=== PATIENT | female | born 1990 | race Caucasian/White ===

== ENCOUNTER 2016-06-19 12:33 | Emergency (ER) | payer OTHER ==
[~2016-06-19] VITALS: Ht 162.6 cm; Wt 86.4 kg
[~2016-06-19 12:33] MED LIST: ALBU8.5H2 INHALATION; AMOX-366 PO; AZIT250T4; BISA10SU61 RC; CYCL10TA9 PO
[2016-06-19 12:50] VITALS: BP 97/65; PULSE 75; RESP 16; O2SAT 97
--- NOTE | 2016-06-19 13:55 | ED.REPORT ---
HPI-URI / Cough / Cold Date of Service Jun 19, 2016 ED Provider: Asuncion Uribe History of Present Illness: bad chest pain radiating to left arm for 3 days, has a cough. taking nyquil and dayquil, feeling hot and cold hot and cold. nadiya red is primary care. no asthma, no breathing issues. hard time breathing since this started Nursing Notes Stated Complaint: CHEST PAIN/BREATHING PROBLEMS Chief Complaint: FLU/Cold Symptoms Nursing Notes Reviewed: Yes Allergies: Coded Allergies: No Known Allergies (Verified Allergy, Unknown, 03/07/16) Scheduled Albuterol HFA (Proair HFA) 8.5 Gm Hfa.aer.ad 2 PUFFS INHALATION Q4H Amoxicillin/Clav K 875-125 mg (Augmentin 875-125 mg) 1 Each Tablet 1 TABLET PO BID Scheduled PRN Bisacodyl (Dulcolax Rectal) 10 Mg Supp.rect 10 MG RC DAILY PRN PRN For Constipation Cyclobenzaprine (Cyclobenzaprine) 10 Mg Tablet 10 MG PO TID PRN PRN For Spasm Miscellaneous Medications Azithromycin (Zithromax (Z-Lázaro)) 250 Mg Tablet General Time Seen by MD: 13:33 Chief Complaint Cough, productive... (Green) Hx Obtained From: Patient Onset Occurred: 3 days ago Location: : Chest Past Medical History Past Medical History Notes: Past Medical History Hemorrhaging ovarian cysts UTI Pyelonephritis Nephrolithiasis during Anxiety Depression Past Surgical History D&C x 2 Family History Noncontributory Smoking History Current Every Day Smoker (1/2 pack a day for 12 years) Social History Alcohol Use: Denies alcohol use Drug Use: Denies drug use Other Social History: Frequent ED visitor, Lives with children, Local resident Occupation lives with daughter, work at [employer] Ambulatory Status Independent Review of Systems Basic Review of Systems Musculoskeletal: No extremity swelling Hematologic: No bleeding Psychiatric: Normal thought content Physical Exam Initial Vital Signs Vital Signs (First) Date Time Temp Pulse Resp B/P Pulse Ox O2 Delivery O2 Flow Rate FiO2 06/19/16 12:50 36.5 75 16 97/65 97 Room Air Initial VS: Reviewed, Vital signs normal Head / Eyes: Atraumatic, Normocephalic, PERRL Neck: Supple, Non-tender, Full range of motion Cardiovascular: Regular rate & rhythm, Heart sounds normal, Intact distal pulses Abdomen / GI: Soft, Non-tender, No guarding, No rebound, No distention Back: No CVA tenderness Lymphatic: No lymphadenopathy Extremities: Vascular intact, Neuro intact, No swelling, No tenderness Skin: Warm, Dry, No cyanosis Neurologic: Alert, Oriented, Nonfocal Psychiatric: Mood/affect normal, Behavior normal, Normal thought content General/Constitutional: Awake, Alert, No acute distress, Well appearing, Well developed, Well hydrated, Well nourished, Cooperative, Not toxic appearing resting comfortable in bed texting ENT: Atraumatic, Airway patent, Mucous membranes moist, Pharynx NL, No peritonsillar abscess Diminished Breath Sounds: Positive: Decreased L, Decreased R, Decreased bilateral Neck: Atraumatic, Supple, No meningismus, Full range of motion Cardiovascular: Heart rate NL, Regular rhythm, Heart sounds NL, No gallop Abdomen: Atraumatic, Soft, Non-tender Interpretation & Diagnostics Interpretation & Diagnostics: patient reporting breathing better after nebulizer treatment Lab Results Interpretation Result Diagram: 06/19/16 1430 06/19/16 1430 Test 06/19/16 14:30 06/19/16 16:18 White Blood Count 8.0th/mm3 (3.8-10.1) Red Blood Count 4.91mil/mm3 (3.90-5.20) Hemoglobin 13.5g/dL (12.0-15.6) Hematocrit 41.1% (35.0-46.0) Mean Corpuscular Volume 83.7fL (81-100) Mean Corpuscular Hemoglobin 27.5pg (27.0-35.0) Mean Corpuscular Hemoglobin Concent 32.8% (32.0-37.0) Red Cell Distribution Width 13.3% (12.3-15.4) Platelet Count 358bil/L (150-400) Neutrophils (%) (Auto) 53.5% (40-74) Lymphocytes (%) (Auto) 34.6% (14-46) Monocytes (%) (Auto) 8.5% (4-12) Eosinophils (%) (Auto) 2.5% (0-5) Basophils (%) (Auto) 0.7% (0-3) D-Dimer < 0.5mg/L (<0.50) Sodium Level 139mEq/L (134-144) Potassium Level 3.8mEq/L (3.5-5.2) Chloride Level 102mEq/L (97-108) Carbon Dioxide Level 22mmol/L (18-29) Blood Urea Nitrogen 8mg/dL (6-20) Creatinine 0.68mg/dL (0.57-1.00) Estimat Glomerular Filtration Rate 154mL/min (>59) Glucose Level 96mg/dL (60-99) Calcium Level 9.2mg/dL (8.5-10.1) Total Bilirubin 0.4mg/dL (0.0-1.2) Aspartate Amino Transf (AST/SGOT) 21U/L (0-50) Alanine Aminotransferase (ALT/SGPT) 13U/L (0-32) Alkaline Phosphatase 65U/L (25-150) Troponin T < 0.010ug/L (0.0-0.011) Total Protein 7.1g/dL (6.4-8.4) Albumin 4.3g/dL (3.4-5.0) Urine Color Yellow (YELLOW) Urine Appearance Hazy (CLEAR,HAZY) Urine pH 7.5 (5.0-8.0) Urine Specific [place] 1.010 (1.003-1.035) Urine Protein Negativemg/dL (NEG,TRACE) Urine Glucose (UA) Negativemg/dL (NEGATIVE) Urine Ketones Negativemg/dL (NEGATIVE) Urine Occult Blood Large (NEGATIVE) Urine Nitrite Negative (NEGATIVE) Urine Bilirubin Negative (NEGATIVE) Urine Urobilinogen Normalmg/dL (NORMAL) Urine Leukocyte Esterase Trace (NEGATIVE) Urine RBC 3-10/hpf (0-2) Urine WBC 0-5/hpf (0-5) Urine Epithelial Cells Moderate/hpf (NONE-MOD) Urine Crystals Oxalic acid crystals (NONE Urine Bacteria Few/hpf (NONE-FEW) Urine Hyaline Casts None/lpf (NONE) Urine Granular Casts None seen (NONE SEEN) Urine Waxy Casts None seen (NONE SEEN) Urine Red Blood Cell Casts None seen (NONE SEEN) Urine White Blood Cell Casts None seen (NONE SEEN) Urine Mucus None seen (None Seen) Urine Trichomonas None seen (NONE SEEN) Urine Yeast None (NONE SEEN) Urinalysis Comment None Urine Culture Reflexed Indicated X-Ray Chest Interpretation Chest Xray Interpretation: ROCEDURE: X-RAY CHEST, TWO VIEWS ([id number]) INDICATIONS: cp, cough TECHNIQUE: 2 views of the chest were acquired. COMPARISON: [facility], CR, XR CHEST 2VW, 07/09/2015, 20:09. FINDINGS: Surgical changes and devices: None. Lungs and pleura: No pleural effusions or pneumothorax. Lungs are clear. Mediastinum: Mediastinal contours are normal. Heart size is normal. Bones and chest wall: No suspicious bony abnormalities. Soft tissues appear unremarkable. IMPRESSION: No acute cardiopulmonary disease process. Re-Eval/Medical Decision Med Decision/Clinical Course Med Decision/Clinical Course: 25 year old presents for evualtion of chest pain of 3 days duration. Has had a productive cough. D-dimer is negative, chest x-ray is negative. pateint not reporting significant decrease in pain. Will start antibiotics with steroids and duoned inhaler. Symptoms no consistent with influenza or phargynitis Discharge & Departure Impression: Primary Impression: Cough Additional Impression: Non-cardiac chest pain Disposition: Home Patient Instructions: Chest Pain (ED) Additional Instructions: The chest x-ray does not show any sign of infection. Your labs are normal. The marker for cardiac injury is negative. You do not have any sign of a pulmonary embolus. There was a great response to the duo nebulizer treatment. Your urine does not show any sign of infection but it is being cultured. If the culture indicates an infection, we will call you. Start azithromycin daily for 5 days. Use prednisone daily for 4 days. Also a prescription for a duoneb inhaler is being provided. This should help decrease the cough and the chest pain. No work till Friday06/24/2016. Notes are provided. Referrals: [facility] EDSupervising Provider for APC: Félix Gonzalez MD copies to: [facility] Asuncion Uribe Jun 19, 2016 13:55
[2016-06-19] MEDS ORDERED: Albuterol-Ipratropium 3 mL Inhalation Solution NEB ONE (14:00)
[2016-06-19] MEDS ORDERED: Ketorolac 30 mg/mL 2 mL Inj IM ONE (14:00)
[2016-06-19 14:23] VITALS: PULSE 85; RESP 20; O2SAT 97
[2016-06-19 14:40] LABS: BASOPHILS % (AUTO) 0.7 % (0-3); EOSINOPHILS % (AUTO) 2.5 % (0-5); MONOCYTES % (AUTO) 8.5 % (4-12); Mean Corpuscular Hemoglobin 27.5 pg (27.0-35.0); Mean Corpuscular Volume 83.7 fL (81-100); NEUTROPHILS % (AUTO) 53.5 % (40-74); Platelet Count 358 bil/L (150-400)
--- NOTE | 2016-06-19 14:42 | DRSVH ---
PROCEDURE: X-RAY CHEST, TWO VIEWS ([id number]) INDICATIONS: cp, cough TECHNIQUE: 2 views of the chest were acquired. COMPARISON: [facility], CR, XR CHEST 2VW, 07/09/2015, 20:09. FINDINGS: Surgical changes and devices: None. Lungs and pleura: No pleural effusions or pneumothorax. Lungs are clear. Mediastinum: Mediastinal contours are normal. Heart size is normal. Bones and chest wall: No suspicious bony abnormalities. Soft tissues appear unremarkable. IMPRESSION: No acute cardiopulmonary disease process. Dictated by: Janae Garcia MD, PhD on 06/19/2016 at 14:40 Approved by: Janae Garcia MD, PhD on 06/19/2016 at 14:41
[2016-06-19 15:01] LABS: TROPONIN T < 0.010 ug/L (0.0-0.011)
[2016-06-19 16:54] LABS: APPEARANCE,URINE HAZY (CLEAR,HAZY); COLOR,URINE YELLOW (YELLOW)
[2016-06-19 16:55] LABS: OCCULT BLOOD,URINE LARGE (NEGATIVE); PH,URINE 7.5 (5.0-8.0); UROBILINOGEN,URINE NORMAL (NORMAL)
[2016-06-19 17:01] VITALS: BP 123/76; PULSE 60; RESP 20; O2SAT 97
[2016-06-19 17:23] VITALS: BP 126/65; PULSE 83; O2SAT 99
[2016-06-19 17:26] VITALS: BP 126/65; PULSE 83; O2SAT 99
[2016-09-17] MEDS ORDERED: CIPR-198 PO (13:57)
[2016-09-17] MEDS ORDERED: NAPR500T5 PO (13:57)
== END 2016-06-19 17:27 | disposition home or self-care (01) ==
LOC: SED 12:33
DX: R05 Cough (principal); R07.89 Other chest pain; R06.00 Dyspnea, unspecified; F17.200 Nicotine dependence, unspecified, uncomplicated; Z87.440 Personal history of urinary (tract) infections
CPT/HCPCS: 36415; 71020; 80053; 81000; 84484; 85025; 85379; 87086; 87088; 93005; 94664; 96372; 99285; J1885; J7620

== ENCOUNTER 2016-07-15 11:03 | Emergency (ER) | payer OTHER ==
[~2016-07-15] VITALS: Ht 162.6 cm; Wt 81.8 kg
[2016-07-15 11:15] VITALS: BP 113/70; PULSE 65; RESP 15; O2SAT 98
[2016-07-15 11:51] LABS: BASOPHILS % (AUTO) 0.6 % (0-3); EOSINOPHILS % (AUTO) 2.9 % (0-5); MONOCYTES % (AUTO) 9.8 % (4-12); Mean Corpuscular Hemoglobin 27.6 pg (27.0-35.0); Mean Corpuscular Volume 86.2 fL (81-100); NEUTROPHILS % (AUTO) 60.7 % (40-74); Platelet Count 323 bil/L (150-400)
--- NOTE | 2016-07-15 15:21 | PCM.EDPN ---
ED Note Date of Service Jul 15, 2016 Presented to ED c/o right side abd pain, similar to prior. Was scheduled for upper and lower endoscopy (on hold for , since miscarried). Nursing orders were initiated Patient left prior to being seen Labs reviewed by me unremarkable CBC and CMP Keturah Cervantes MD Jul 15, 2016 15:21
[2016-09-17] MEDS ORDERED: CIPR-198 PO (13:57)
[2016-09-17] MEDS ORDERED: NAPR500T5 PO (13:57)
== END 2016-07-15 13:54 | disposition left against medical advice (07) ==
LOC: SED 11:03
DX: R10.9 Unspecified abdominal pain (principal); Z53.21 Procedure and treatment not carried out due to patient leaving prior to being seen by health care provider

== ENCOUNTER 2016-09-18 00:07 | Day surgery (SDC) | payer OTHER ==
[2016-09-18] VITALS (7 sets, daily range): BP systolic 81–118; BP diastolic 46–67; PULSE 59–80; RESP 13–16; O2SAT 96–100
[~2016-09-18] VITALS: Ht 160 cm; Wt 86.0 kg
[~2016-09-18 00:07] MED LIST changes: -AMOX-366 PO; -AZIT250T4; -BISA10SU61 RC; +CIPR-198 PO; -CYCL10TA9 PO; +NAPR500T5 PO
[2016-09-18] MEDS ORDERED: Propofol 10 mg/mL 20 mL Inj ONE (00:08)
[2016-09-18] MEDS ORDERED: Lactated Ringer's 1,000 ML IV SCH (05:00)
[2016-09-18] MEDS ORDERED: Sodium Biphos-Phos 133 mL Enema RECTAL PRN (06:00)
[2016-09-18] MEDS ORDERED: 0.9% Sodium Chloride 1,000 ML IV SCH (06:00)
[2016-09-18] MEDS ORDERED: Sodium Chloride LOK Flush 10 mL Syringe IV PRN (06:00)
[2016-09-18] MEDS ORDERED: Ondansetron 2 mg/mL 2 mL Inj IVPUSH PRN (13:50)
[2016-09-18] MEDS ORDERED: MetoCLOpramide 5 mg/mL 2 mL Inj IVPUSH PRN (13:50)
[2016-09-18] MEDS: Lactated Ringer's 1,000 ML IV SCH ×2 (13:59→14:13)
--- NOTE | 2016-09-18 15:02 | PCM.ANEP1 ---
Post Anesthesia PACU Phase 1 Assessment Vital Signs Vital Signs Date Time Temp Pulse Resp B/P Pulse Ox O2 Delivery O2 Flow Rate FiO2 09/18/16 14:46 80 14 98/55 100 Room Air 09/18/16 13:18 36.5 73 16 118/65 96 Room Air Anesthetic Administered: GA, MAC Level of Alertness: Awake, talking SANDERS's with Equal Strength: Yes Pain: No Nausea or Vomiting: No CV Function & Hydration Stable: No Airway Device: na Oxygen Delivery: Room Air Lungs: Clear to Auscultation, Normal Air Movement Dermatome Level: Full Sensation PACU Phase 2 Assessment Complications: No Follow up Care: N/A Patient Instructions Provided: N/A Hernando Dolan MD Sep 18, 2016 15:02
--- NOTE | 2016-09-18 15:02 | PCM.HPANE ---
Patient Data Surgeon Admitting Provider: Attending Provider:Huan Marx MD Primary Care Physician:Uyen Other Provider:Bob Haynes Anesthesia Reason for Visit Right Flank Pain, Nausea Ht/WT & BMI Height (Feet): 5 Height (Inches): 3 Weight (Kilograms): 86 Body Mass Index 33.00 Allergies Coded Allergies: No Known Allergies (Verified Allergy, Unknown, 09/18/16) Past Anesthesia History Anesthesia History: Denies:: Abnormal Airway, Anesthesia Reactions, Difficult Intubation, Fam Anesthesia Reaction, Fam Malignant Hypertherm, Malignant Hyperthermia Diabetes History Hx Diabetes?: No MRSA MRSA: Yes (Back-resolved) Medications Reported Medications Albuterol HFA (Proair HFA)8.5 Gm Hfa.aer.ad2 Puffs INHALATION Q4H 03/07/16 Discontinued Reported Medications Naproxen 500 Mg Tablet.dr500 Mg PO BID PRN For Pain Ref 0 09/17/16 Ciprofloxacin 500 Mg Canics812 Mg PO BID 09/17/16 Cyclobenzaprine 10 Mg Qbzjpt82 Mg PO TID PRN For Spasm #20 03/07/16 Azithromycin (Zithromax (Z-Lázaro))250 Mg Tablet #6 03/07/16 Discontinued Scripts Bisacodyl (Dulcolax Rectal)10 Mg Supp.rect10 Mg RC DAILY PRN For Constipation # 10 SUPP.RECT Ref 0 Prov:Curt Camacho MD 03/07/16 Amoxicillin/Clav K 875-125 mg (Augmentin 875-125 mg)1 Each Tablet1 Tablet PO BID #14 TABLET Prov:Curt Camacho MD 03/07/16 History History of ENT Problems?: No HEENT History: Denies:: Abnormal Airway Difficult Intubation Denture Type: None Teeth Condition: Within Normal Limits Hx of Heart Problems?: No Cardiovascular History: Denies:: AICD Abdominal Aortic Aneurism Atrial Fibrillation Cardiac Surgery Chest Pain Congestive Heart Failure Coronary Artery Disease Edema Heart Murmur Hypertension Irregular Heartbeat Pacemaker Peripheral Vascular Rheumatic Fever Thrombophlebitis Valvular Heart Disease Hx of Respiratory Problem?: Yes Respiratory History: Positive for:: Asthma Denies:: COPD Chest Surgery Cough Dyspnea Emphysema Hemoptysis Oxygen Administration Pneumonia Pulmonary Embolism Tuberculosis Use of C-PAP Machine Use of Inhalers / NEBS Other Resp Pertinent History: Recurrent bronchitis Hx Neurologic Problems?: No Neurological History: Denies:: Alzheimer's Disease CVA Dementia Dizziness Headaches Multiple Sclerosis Parkinson's Disease Peripheral Neuropathy Seizures TIA Hx of GI Problems?: No Gastrointestinal History: Denies:: Cirrhosis Diverticulitis Gall Bladder Disease Gastroesphageal Reflux Gastrointestinal Bleeding Heartburn Hepatitis Hiatal Hernia Liver Disease Rectal Bleeding Hx of Problems?: No Genitourinary History: Denies:: HX of Hemodialysis Kidney Stones Urinary Tract Infection HX of Peritoneal Dialysis: No Female Hx: Denies:: Currently Endometriosis Pelvic Inflammatory Problems with Breasts? Skin History: Denies:: History Skin Disorders? Pressure Ulcers Hx Musculoskeletal Problems?: No Musculoskeletal History: Denies:: Back Injury Degenerative Joint Fibromyalgia Joint Replacement Musculoskeletal Trauma Myasthenia Gravis Osteoarthritis Rheumatoid Arthritis Systemic Lupus Hx of Psycho/Social Problems?: No Psycho Social History: Positive for:: Anxiety Denies:: Bipolar Disorder Hx Depression Suicide Attempt Hx Surgeries?: Yes () Hx Any Other Health Problems?: Yes Other History: Denies:: Cancer Endocrine Disease Hospitalization Thyroid Disease History Blood Transfusions: Denies:: Accept Blood Products? Blood Transfuse Reaction Blood Transfusions Hx Diabetes: No Hx Alcohol Use: NoHx Substance Use: Yes (marijuana) Smoking Status: Current Every Day Smoker Have You Smoked inLast 12 mo: No Stop/Bang Treated for Sleep Apnea?: No Do You Have a CPAP Machine?: No S-Snoring: Do You Snore Loudly: No T-Tired: feel tired, fatigued: Yes O-Obsered: Observed not breath: No P-Blood Pressure: treated: No B- Body Mass Index > 35 kg/m2: No A- Age over 50: No N- Neck Large Circumference: No G- Gender Male: No PAYTON Total Score: 1 Risk Assessment Category Category 1A: Patient has history of documented sleep apnea, and HAS NOT received any narcotic, sedative or anesthesia administration during this stay. Category 1B: Patient has history of documented sleep apnea, and HAS received any narcotic , sedative or anesthesia administration during this stay Category 2: Patient has SUSPECTED Obstructive Sleep Apnea, and HAS received any narcotic , sedative or anesthesia administration during this stay. Category 3: Patient has SUSPECTED Obstructive Sleep Apnea and HAS NOT received narcotic, sedative or anesthesia administration during this stay. Category 4: Outpatient in Procedural Areas with known sleep apnea or who screen positive for High Risk via the STOP/BANG questionnaire. Exam Exam Vital Signs Vital Signs Date Time Temp Pulse Resp B/P Pulse Ox O2 Delivery O2 Flow Rate FiO2 09/18/16 13:18 36.5 73 16 118/65 96 Room Air General Appearance: Alert, Oriented X3, Cooperative, No Acute Distress HEENT/AIRWAY: MP 2, Neck Movement (FROM), Mouth Opening (3 FBMO) Lungs: Clear to Auscultation, Normal Air Movement Heart: Exam Unremarkable, Regular Rate/Rhythm, No Murmurs/Rubs/Gallops Plan Impression Patient chart reviewed, patient interviewed and anesthestic plan with risks, benefits, and alternatives discussed, and informed consent obtained. NPO per Anesth. Guidelines: Yes ASA Physical Status: ASA3 Severe Disease Anesthetic Plan: GA, MAC Bene/Risks/Altern/Consents: Yes HP Complete Prior to Induction: Yes Hernando Dolan MD Sep 18, 2016 13:49
--- NOTE | 2016-09-18 15:23 | ENDO ---
[address] [address] ENDOSCOPY PROCEDURE PATIENT: AMPARO RODRIGUEZ : 1990 MR#: [id number] ADMIT: 09/18/2016 JOB ID: [id number] PREPROCEDURE DIAGNOSIS: Right flank pain, nausea. POSTPROCEDURE DIAGNOSIS: Right flank pain, nausea, possible proximal Hdez's esophagus, internal hemorrhoids. PROCEDURE: Esophagogastroduodenoscopy with biopsies, colonoscopy with terminal ileoscopy and biopsies. ENDOSCOPIST: Huan Marx MD MEDICATIONS: See the anesthesia record. INDICATIONS: The patient is a 25-year-old woman who has had longstanding right flank pain and constant nausea. The pain is exacerbated by certain positions. She also has pain in the left lower quadrant, intermittent constipation, abdominal bloating. There is no family history of inflammatory bowel disease. After discussion of risks and benefits, she agreed to proceed with upper endoscopy and colonoscopy with anesthesia. FINDINGS: The stomach and duodenum were grossly normal. She had a grade 2 esophagogastric flap valve. Biopsies were obtained from the EG junction to rule out Hdez's esophagus. There was a separate island of mucosal change in the proximal esophagus at 15 cm which was biopsied to rule out Hdez's esophagus. Colonoscopy with ileoscopy was grossly normal. She had small internal hemorrhoids. DESCRIPTION OF PROCEDURE: Procedural sedation was achieved. The bite block was introduced. She was connected to hemodynamic monitoring, pulse oximetry, capnography. The GIF H 180 J gastroscope was introduced through the mouth and passed to the level of the second portion of the duodenum under visualization. Duodenal biopsies were obtained to rule out celiac disease. The duodenum was grossly normal. The stomach was grossly normal. A biopsy was obtained from the gastric antrum with cold forceps to rule out H. pylori. Retroflexion in the stomach revealed a grade 2 esophagogastric flap valve. There was no significant hiatal hernia. The esophagogastric junction was at 35 cm from the incisors. Biopsies were obtained from the EG junction with cold forceps to rule out Hdez's esophagus. In the proximal esophagus there was a separate island of mucosal change which looked suspicious for Hdez's esophagus. This extended for approximately 2 cm. This was present, involving approximately 10% of the circumference of the esophagus at 15 cm from the incisors. Biopsies were obtained with cold forceps for permanent pathology. The upper scope was removed and that portion of the procedure was terminated. Digital rectal exam was performed. The PCF H 180 AL colonoscope was introduced and passed under visualization until the cecum was visualized and photo documented. The terminal ileum was intubated for approximately 10 cm, which was normal. Biopsies were obtained from the terminal ileum with cold forceps and sent for permanent pathology. The scope was then withdrawn and carefully retroflexed in the rectum. Random biopsies were obtained throughout the colon with cold forceps and sent for permanent pathology. No other mucosal abnormalities were identified in the colon. Retroflexion revealed small internal hemorrhoids. The scope was withdrawn and the procedure was terminated. She tolerated both procedures well. RECOMMENDATIONS: She will follow up with me in surgery clinic in 2-4 weeks to discuss pathology results and the next steps.
--- NOTE | 2016-09-20 13:16 | PATH ---
SURGICAL PATHOLOGY Attending Physician:Emani Rocha CASE STATUS: Signed Out PATIENT NAME: AMPARO RODRIGUEZ PID: [id number] : 11/06/1930 DATE COLLECTED:09/18/2016 00:00 SPECIMEN: 1: Duodenum, Biopsy 2: Stomach, Antrum, Biopsy 3: Esophagus, Biopsy 4: Esophagus, Biopsy 5: Colon, Polyp 6: Ileum, Biopsy CLINICAL HISTORY: 1. DUODENUM BIOPSY R/O SPRUE 2. ANTRUM BIOPSY R/O H.PYLORI 3. DISTAL ESOPHAGUS BIOPSY 4. PROXIMAL ESOPHAGUS @15CM BIOPSY 5. RANDOM COLON BIOPSY 6. TERMINAL ILEUM BIOPSY FINAL DIAGNOSIS: 1.DUODENUM BIOPSY: FRAGMENTS OF NORMAL-APPEARING DUODENUM MUCOSA. Normal delicate mucosal villi present. Negative for significant inflammation, dysplasia and malignancy. 2.GASTRIC ANTRUM BIOPSY: MILD CHRONIC GASTRITIS INVOLVING ANTRAL MUCOSA. Negative for evidence of Helicobacter on H&E stain. Negative for intestinal metaplasia. Negative for dysplasia and malignancy. 3.DISTAL ESOPHAGUS BIOPSY: FRAGMENTS OF SQUAMOUS MUCOSA AND GASTRIC CARDIA-TYPE MUCOSA NEGATIVE FOR SPECIALIZED METAPLASIA OF MUNOZ' S-TYPE ESOPHAGUS. Negative for dysplasia and malignancy. Negative for squamous intraepithelial eosinophils. 4.PROXIMAL ESOPHAGUS BIOPSY AT 15 CM: FRAGMENTS OF SQUAMOUS MUCOSA AND GASTRIC CARDIA-TYPE MUCOSA NEGATIVE FOR SPECIALIZED METAPLASIA OF MUNOZ' S-TYPE ESOPHAGUS. Negative for dysplasia and malignancy. Negative for squamous intraepithelial eosinophils. 5.RANDOM COLON BIOPSIES: FRAGMENTS OF NORMAL-APPEARING COLON MUCOSA. Negative for significant architectural distortion. Negative for significant inflammation, dysplasia and malignancy. 6.TERMINAL ILEUM BIOPSY: FRAGMENTS OF NORMAL TERMINAL ILEUM MUCOSA. Negative for granulomas. Negative for significant inflammation, dysplasia and malignancy. ICD10 K29.70 R10.9 GROSS DESCRIPTION: Received are six formalin-filled containers, each labeled with the patient' s name. 1. Received in formalin, labeled with the patient' s name and "duodenum biopsy", is one fragment of lawrence, soft tissue measuring 0.4 x 0.2 x 0.1 cm. The fragment is totally submitted in cassette 1A. 2. Received in formalin, labeled with the patient' s name and "antrum biopsy", is one fragment of lawrence, soft tissue measuring 0.2 x 0.1 x 0.1 cm. The fragment is totally submitted in cassette 2A. 3. Received in formalin, labeled with the patient' s name and "distal esophagus", are multiple fragments of lawrence, soft tissue ranging in size from 0.1 x 0.1 x 0.1 cm, totally submitted in cassette 3A. 4. Received in formalin, labeled with the patient' s name and "proximal esophagus at 15 cm", is one fragment of lawrence, soft tissue measuring 0.1 x 0.1 x 0.1 cm. The fragment is totally submitted in cassette 4A. 5. Received in formalin, labeled with the patient' s name and "random colon", are multiple fragments of lawrence, soft tissue ranging in size from 0.1 x 0.1 x 0.1 cm to 0.2 x 0.2 x 0.1 cm. All fragments are totally submitted in cassette 5A. 6. Received in formalin, labeled with the patient' s name and "terminal ileum biopsy", is one fragment of lawrence, soft tissue measuring 0.4 x 0.3 x 0.2 cm. The fragment is totally submitted in cassette 6A. ([id number]) MICRO DESCRIPTION: See diagnosis. ICD-9 CODES: CPT CODES: 1: 32971 2: 76508 3: 66545 4: 14498 5: 76024 6: 37750 Electronically Signed Out Félix Aguilar MD [facility] Pathology [facility] [address], [place] [address] Technical component performed at [facility], [facility] [address], [place], [address]
== END 2016-09-18 23:59 | disposition home or self-care (01) ==
LOC: END 00:07
PROVIDERS: ATTEND Student in an Organized Health Care Education/Training Program
DX: K59.00 Constipation, unspecified (principal); K64.8 Other hemorrhoids; K29.50 Unspecified chronic gastritis without bleeding; J45.909 Unspecified asthma, uncomplicated; F41.9 Anxiety disorder, unspecified; F17.210 Nicotine dependence, cigarettes, uncomplicated; F12.90 Cannabis use, unspecified, uncomplicated; Z79.51 Long term (current) use of inhaled steroids
CPT/HCPCS: 43239; 45380; J7120

== ENCOUNTER 2016-12-03 09:56 | Emergency (ER) | payer OTHER ==
[~2016-12-03] VITALS: Ht 157.5 cm; Wt 86.4 kg
[~2016-12-03 09:56] MED LIST changes: -CIPR-198 PO; -NAPR500T5 PO
[2016-12-03 10:00] VITALS: BP 117/77; PULSE 81; RESP 16; O2SAT 98
--- NOTE | 2016-12-03 10:04 | ED.REPORT ---
HPI-Headache Date of Service Dec 03, 2016 ED Provider: Carter Choe MD A 26 year old female a history of anxiety and a family history of migraines presents to the ED complaining of a unilateral headache. The headache is described as a sharp, left-sided "burning" pressure that began last night and is accompanied by photophobia, nausea and an "odd feeling" in the left side of her face. The pt denies ear pain or recent head injury. The pt has been experiencing these headaches daily for some time and has not had any relief with Midol or ibuprofen. She had her vision checked recently and was told that her eyesight was not contributing to her pain. The pt denies family history of brain aneurysm. Nursing Notes Stated Complaint: SHARP PAIN IN HEAD/DIZZY Chief Complaint: Neuro Symptoms/ Deficits Nursing Notes Reviewed: Yes Allergies: Coded Allergies: No Known Allergies (Verified Allergy, Unknown, 09/18/16) Scheduled Albuterol HFA (Proair HFA) 8.5 Gm Hfa.aer.ad 2 PUFFS INHALATION Q4H Scheduled PRN Naproxen (Naproxen) 500 Mg Tab 500 MG PO BID PRN PRN For Pain Prochlorperazine Maleate (Compazine) 5 Mg Tablet 5-10 MG PO TID PRN PRN For Nausea/Vomiting General Time Seen by MD: 10:03 Chief Complaint Headache Hx Obtained From: Patient Arrived By: Walk-in Sudden in Onset?: No Onset Occurred: 1 day ago Symptom Duration: Since onset Recent Healthcare: No recent hospitalization Similar Sx Previous: Yes Past Medical History Past Medical History Notes: Past Medical History Hemorrhaging ovarian cysts UTI Pyelonephritis Nephrolithiasis during Anxiety Depression Past Surgical History D&C x 2 Family History Migraines Smoking History Current Every Day Smoker Social History Alcohol Use: Denies alcohol use Drug Use: Denies drug use Other Social History: Frequent ED visitor, Lives with children, Local resident Occupation lives with daughter, work at [employer] Ambulatory Status Independent Review of Systems Review of Systems Note: "odd feeling" in left side of face Eyes: Reports: Photophobia GI: Reports: Nausea, Denies: Abdominal pain Musculoskeletal: Denies: Back pain, Neck pain Skin: Denies Rash Neurologic: Reports: Headache Complete sys rev & neg: except as marked. Physical Exam Initial Vital Signs Vital Signs (First) Date Time Temp Pulse Resp B/P Pulse Ox O2 Delivery O2 Flow Rate FiO2 12/03/16 10:00 36.8 81 16 117/77 98 12/03/16 10:51 Room Air Initial VS: Reviewed General/Constitutional: Awake, Alert multiple tattoos and facial piercings Head / Eyes: Atraumatic, Normocephalic, PERRL, EOMI Neck: Atraumatic, Supple, Full range of motion Neurologic: Oriented X3, Speech NL, No motor deficits, No sensory deficits ENT: Atraumatic, Airway patent, Mucous membranes moist Respiratory / Chest: Atraumatic, Breath sounds NL, Breath sounds = bilat, No respiratory distress Cardiovascular: Heart rate NL, Regular rhythm, Heart sounds NL Abdomen: Atraumatic, Soft, Non-tender Skin: Atraumatic, Color NL, No rash, Warm, Dry Psychiatric: Affect NL, Mood NL Back: Atraumatic, Full range of motion Upper Extremity / MS: Atraumatic, Full range of motion Lower Extremity / Pelvis / MS: Atraumatic, Full range of motion Interpretation & Diagnostics Lab Results Interpretation Result Diagram: 12/03/16 1039 12/03/16 1039 Test 12/03/16 10:39 White Blood Count 7.2th/mm3 (3.8-10.1) Red Blood Count 4.65mil/mm3 (3.90-5.20) Hemoglobin 13.5g/dL (12.0-15.6) Hematocrit 39.6% (35.0-46.0) Mean Corpuscular Volume 85.2fL (81-100) Mean Corpuscular Hemoglobin 29.0pg (27.0-35.0) Mean Corpuscular Hemoglobin Concent 34.1% (32.0-37.0) Red Cell Distribution Width 12.4% (12.3-15.4) Platelet Count 348bil/L (150-400) Neutrophils (%) (Auto) 59.7% (40-74) Lymphocytes (%) (Auto) 29.6% (14-46) Monocytes (%) (Auto) 8.3% (4-12) Eosinophils (%) (Auto) 1.8% (0-5) Basophils (%) (Auto) 0.3% (0-3) Prothrombin Time 10.0sec (8.1-12.5) Prothromb Time International Ratio 0.94ratio Sodium Level 139mEq/L (134-144) Potassium Level 3.7mEq/L (3.5-5.2) Chloride Level 102mEq/L (97-108) Carbon Dioxide Level 22mmol/L (18-29) Blood Urea Nitrogen 7mg/dL (6-20) Creatinine 0.52mg/dL (0.57-1.00) Estimat Glomerular Filtration Rate 208mL/min (>59) Glucose Level 90mg/dL (60-99) Calcium Level 8.9mg/dL (8.5-10.1) Hold Wing Top Tube Received (Received) CT Head Interpretation IMPRESSION: 1. No acute intracranial abnormality. Dictated by: Jamie Navas M.D. on 12/03/2016 at 11:19 Approved by: Jamie Navas M.D. on 12/03/2016 at 11:28 Interpretation / Wet Read by: Interpret - Radiologist Re-Eval/Medical Decision Med Decision/Clinical Course Chronic headache which is unilateral with associated nausea and photophobia in an otherwise healthy patient. Head CT is performed and unremarkable for intracranial hemorrhage or mass lesion or signs anemia. Headache has resolved after Compazine, Benadryl, dexamethasone and fluids. Will discharge with Compazine and naproxen. Recommend close outpatient follow-up and return precautions given Source of Hx: Old records Re-Evaluation/Progress : Time of Eval: 11:32 )( Patient Status: Condition improved Re-Evaluation/Progress Note: Pt rechecked, who is feeling significantly better. The diagnosis and plan for discharge are discussed. The pt understands and agrees with the plan. All questions are addressed at this time. Counseled Regarding: Diagnosis, Lab results, Need for follow-up, When/why to return to ED Discharge & Departure Impression: Primary Impression: Headache Headache type: unspecified Headache chronicity pattern: acute headache Intractability: not intractable Qualified Code: R51 - Headache Disposition: Home Discharge Condition All VS Reviewed: Yes Condition: Stable Patient Instructions: Migraine Headache (ED) Additional Instructions: Use naproxen and Compazine as needed for headache or nausea. Call a primary care doctor for close follow-up. Return to the ER as needed if worse. Referrals: Emeterio Avinaibe Attestation Portions of this note were transcribed by Marion Reagan. I, Dr. Choe personally performed the history, physical exam and medical decision-making; I reviewed and confirmed the accuracy of the information in the transcribed note. copies to: Emeterio Avina Timothy S DO Dec 03, 2016 10:04 MARION REAGAN Dec 03, 2016 10:20
[2016-12-03] MEDS ORDERED: 0.9% Sodium Chloride 1,000 ML IV ONE (10:18)
[2016-12-03] MEDS ORDERED: Dexamethasone 10 mg/mL Inj IVPUSH ONE (10:20)
[2016-12-03] MEDS ORDERED: ProchlorPERazine 5 mg/mL 2 mL Inj IVPUSH ONE (10:20)
[2016-12-03 10:51] VITALS: BP 115/67; PULSE 81; RESP 14; O2SAT 95
[2016-12-03 10:52] LABS: BASOPHILS % (AUTO) 0.3 % (0-3); EOSINOPHILS % (AUTO) 1.8 % (0-5); MONOCYTES % (AUTO) 8.3 % (4-12); Mean Corpuscular Volume 85.2 fL (81-100); NEUTROPHILS % (AUTO) 59.7 % (40-74); Platelet Count 348 bil/L (150-400)
[2016-12-03 11:13] LABS: INR 0.94 ratio
--- NOTE | 2016-12-03 11:29 | DRSVH ---
PROCEDURE: CT BRAIN WITHOUT CONTRAST ([id number]) INDICATIONS: headache TECHNIQUE: Noncontrast 4.5 mm thick angled axial sections acquired from the foramen magnum to the vertex, with c oronal reformats. COMPARISON: [facility], CT, BRAIN W/O CONTRAST, 11/13/2013, 23:48. FINDINGS: Image quality: Excellent. CSF spaces: Basal cisterns are patent. No extra-axial fluid collections. Ventricles are normal in size and shape. Brain: No intracranial hemorrhage, mass, or mass effect. Mosquera-white matter interface is preserved. Skull and face: Calvarium and visualized facial bones are intact, without suspicious lesions. Sinuses: Visualized sinuses and mastoids are clear. IMPRESSION: 1. No acute intracranial abnormality. Dictated by: Jamie Navas M.D. on 12/03/2016 at 11:19 Approved by: Jamie Navas M.D. on 12/03/2016 at 11:28
[2016-12-03] MEDS ORDERED: NPR500T PO (11:45)
[2016-12-03] MEDS ORDERED: PROC5TAB50 PO (11:45)
[2016-12-03 11:59] VITALS: BP 115/67; PULSE 81; RESP 14; O2SAT 95
== END 2016-12-03 11:59 | disposition home or self-care (01) ==
LOC: SED 09:56
DX: R51 Headache (principal); R11.0 Nausea; F41.8 Other specified anxiety disorders; F17.200 Nicotine dependence, unspecified, uncomplicated; Z87.440 Personal history of urinary (tract) infections
CPT/HCPCS: 36415; 70450; 80048; 85025; 85610; 96361; 96374; 96375; 99285; J0780; J1100; J1200; J7030